=== PATIENT | female | born 1965 | race Caucasian/White ===

== ENCOUNTER 2018-05-10 22:35 | Inpatient (IN) ==
[2018-05-10] MEDS ORDERED: ASPIRIN 325 MG TABLET PO STA (23:29)
[2018-05-11 00:02] LABS: Basophils % 0.7 % (0.0-0.8); Eosinophils # 0.4 10*3/uL (0.0-0.87); Eosinophils % 6.2 % (0.00-10.9); Hematocrit 34.3 VOL% (35.7-47.0); Hemoglobin 12.3 GM/DL (12.0-16.0); Immature Granulocytes % 0.2 %; Immature Granulocytes Absolute 0.01 #; Lymphocytes # 2.4 10*3/uL (1.4-4.0); Lymphocytes % 39.6 % (21.3-54.2); Mean Corpuscular HGB Conc 35.9 GM/DL (32-36); Mean Corpuscular Hemoglobin 31 PG (27-34); Mean Corpuscular Volume 87.3 FL (87-102); Mean Platelet Volume 9.9 FL (9.6-12.0); Monocytes # 0.6 10*3/uL (0.11-0.8); Monocytes % 9.9 % (1.7-12.7); Neutrophils # 2.7 10*3/uL (1.4-7.4); Neutrophils % 43.4 % (38.7-73.9); Platelet Count 250 T/CUMM (130-400); Red Blood Count 3.93 MC/CUMM (3.8-5.5); Red Cell Distribution Width 12.9 % (9.3-17.3); White Blood Count 6.1 T/CUMM (4-12)
[2018-05-11 00:22] LABS: Alanine Aminotransferase 20 U/L (13-56); Albumin 3.3 G/DL (3.4-5.0); Alkaline Phosphatase 72 U/L (45-117); Aspartate Amino Transferase 19 U/L (0-37); Bilirubin,Total < 0.39 MG/DL (0.2-1.0); Blood Urea Nitrogen 23 MG/DL (7-18); Calcium 7.8 MG/DL (8.5-10.1); Glucose 97 MG/DL (74-106); Osmolality,Calculated 289.8 MOS/KG (273-304); Potassium 3.3 MMOL/L (3.5-5.1); Sodium 144 MMOL/L (136-145); Total Protein 6.5 G/DL (6.4-8.3)
[2018-05-11] MEDS ORDERED: guaiFENesin/DM ER 600-30 MG TABLET PO PRN (01:03)
[2018-05-11 01:07] LABS: Apearance,Urine CLEAR (Clear); Bacteria,Urine Occasional /HPF (Few); Bilirubin,Urine Negative (Negative); Blood, Urine Small mg/dL (Negative); Glucose,Urine (UA) Negative (Negative); Ketones,Urine Negative (Negative); Nitrite,Urine Negative (Negative); Protein,Urine Negative; RBC,Urine 1 /HPF (0-4); Urine Color Colorless (Yellow); Urine Specific Gravity 1.003 (1.001-1.035); Urine Urobilinogen < 2.0 EU/DL (0.2-1.0); WBC,Urine 2 /HPF (0-6)
[2018-05-11] MEDS ORDERED: POTASSIUM CHLORIDE 20 MEQ TABLET PO STA (01:15)
[2018-05-11] MEDS: ZALEPLON 5 MG CAPSULE PO PRN ×2 (02:50→21:57)
[2018-05-11 04:58] LABS: Basophils % 0.5 % (0.0-0.8); Eosinophils # 0.4 10*3/uL (0.0-0.87); Eosinophils % 5.8 % (0.00-10.9); Hematocrit 34.7 VOL% (35.7-47.0); Hemoglobin 12.1 GM/DL (12.0-16.0); Immature Granulocytes % 0.2 %; Immature Granulocytes Absolute 0.01 #; Lymphocytes # 2.4 10*3/uL (1.4-4.0); Mean Corpuscular HGB Conc 34.9 GM/DL (32-36); Mean Corpuscular Hemoglobin 31 PG (27-34); Mean Corpuscular Volume 88.3 FL (87-102); Monocytes # 0.6 10*3/uL (0.11-0.8); Monocytes % 9.6 % (1.7-12.7); Neutrophils # 2.7 10*3/uL (1.4-7.4); Neutrophils % 44.9 % (38.7-73.9); Platelet Count 228 T/CUMM (130-400); Red Blood Count 3.93 MC/CUMM (3.8-5.5); Red Cell Distribution Width 12.9 % (9.3-17.3); White Blood Count 6.1 T/CUMM (4-12)
[2018-05-11 05:28] LABS: Albumin 2.9 G/DL (3.4-5.0); Bilirubin,Total 0.4 MG/DL (0.2-1.0); Calcium 7.7 MG/DL (8.5-10.1); Potassium 3.7 MMOL/L (3.5-5.1); Risk Ratio 1.91; Thyroid Stimulating Hormone 8.77 uIU/ml (0.358-3.74); Total Protein 6.3 G/DL (6.4-8.3); VLDL CHOLESTEROL 13.8 MG/DL
[2018-05-11] MEDS: ACETAMINOPHEN 325 MG TABLET PO PRN ×2 (08:34→21:57)
[2018-05-11] MEDS: MONTELUKAST 10 MG TABLET PO SCH ×2 (08:35→21:56)
[2018-05-11] MEDS: ASPIRIN EC 325 MG TABLET PO SCH (08:35)
[2018-05-11] MEDS: PANTOPRAZOLE 40 MG TABLET PO SCH (08:35)
[2018-05-11] MEDS: POTASSIUM CHLORIDE 20 MEQ TABLET PO SCH (08:35)
[2018-05-11] MEDS ORDERED: LORazepam 2 MG/1 ML VIAL IM ONE (09:24)
[2018-05-11] MEDS ORDERED: diphenhydrAMINE 50 MG/1 ML VIAL IV ONE (09:25)
[2018-05-11] MEDS ORDERED: diphenhydrAMINE 50 MG/1 ML VIAL ONE (09:27)
[2018-05-11] MEDS ORDERED: LORazepam 2 MG/1 ML VIAL ONE (09:27)
[2018-05-11 23:43] LABS: Barbiturates Screen,Urine Negative (Negative); Benzodiazepines Screen,Urine Negative (Negative); Cannabinoid Screen,Urine Negative (Negative); Opiate Screen,Urine Negative (Negative); Phencyclidine Screen,Urine Negative (Negative)
[2018-05-12] MEDS: PANTOPRAZOLE 40 MG TABLET PO SCH (09:30)
[2018-05-12] MEDS: MONTELUKAST 10 MG TABLET PO SCH (09:30)
[2018-05-12] MEDS: POTASSIUM CHLORIDE 20 MEQ TABLET PO SCH (09:30)
[2018-05-12] MEDS: ASPIRIN EC 325 MG TABLET PO SCH (09:31)
[2018-05-12] MEDS ORDERED: VENLAFAXINE 37.5 MG TABLET PO SCH (10:00)
[2018-05-12 11:45] VITALS: BP 117/75
== END 2018-05-12 14:44 | disposition home or self-care (01) | DRG 880 ==
LOC: N.ED 22:35 → N.EDINP 05-11 01:08 → SUATTDRO 05-11 01:08 → N.TELES 05-11 01:32
PROVIDERS: ADMIT Internal Medicine; ATTEND Internal Medicine